=== PATIENT | male | born 1995 | race African-American/Black ===

== ENCOUNTER 2016-08-12 16:08 | Emergency (ER) | payer OTHER, SELFPAY ==
[2016-08-12] MEDS ORDERED: predniSONE 20 MG TAB ONE (16:37)
== END 2016-08-12 16:42 | disposition home or self-care (01) ==
LOC: NAV ERS 16:08
DX: J30.9 Allergic rhinitis, unspecified (principal); J45.909 Unspecified asthma, uncomplicated; F17.210 Nicotine dependence, cigarettes, uncomplicated
CPT/HCPCS: 99282; J7506

== ENCOUNTER 2016-10-10 20:39 | Emergency (ER) | payer SELFPAY | END 2016-10-10 21:10 | disposition home or self-care (01) | LOC: NAV ERS 20:39 | DX: F12.10 Cannabis abuse, uncomplicated (principal); J45.909 Unspecified asthma, uncomplicated; Z87.891 Personal history of nicotine dependence; Z79.899 Other long term (current) drug therapy; V48.4XXA Person boarding or alighting a car injured in noncollision transport accident, initial encounter | CPT/HCPCS: 99284 ==

== ENCOUNTER 2018-11-23 20:24 | Emergency (ER) | payer BC, SELFPAY ==
[2018-11-23] MEDS ORDERED: Sulfameth/Trimethoprim DS 800-160mg TAB ONE (20:46)
== END 2018-11-23 20:48 | disposition home or self-care (01) ==
LOC: NAV ERS 20:24
DX: J34.0 Abscess, furuncle and carbuncle of nose (principal); J45.909 Unspecified asthma, uncomplicated; Z87.891 Personal history of nicotine dependence
CPT/HCPCS: 99283

== ENCOUNTER 2019-04-01 13:53 | Emergency (ER) | payer BC | END 2019-04-01 14:30 | disposition home or self-care (01) | LOC: NAV ERS 13:53 | DX: H00.015 Hordeolum externum left lower eyelid (principal); J45.909 Unspecified asthma, uncomplicated; Z87.891 Personal history of nicotine dependence; Z79.51 Long term (current) use of inhaled steroids | CPT/HCPCS: 99283 ==

== ENCOUNTER 2020-02-29 07:50 | Emergency (ER) | payer BC, OTHER | END 2020-02-29 08:26 | disposition home or self-care (01) | LOC: NAV ERS 07:50 | DX: S46.912A Strain of unspecified muscle, fascia and tendon at shoulder and upper arm level, left arm, initial encounter (principal); J45.909 Unspecified asthma, uncomplicated; Z87.891 Personal history of nicotine dependence; X50.9XXA Other and unspecified overexertion or strenuous movements or postures, initial encounter | CPT/HCPCS: 99283 ==

== ENCOUNTER 2020-08-06 10:02 | Emergency (ER) | payer BC | END 2020-08-06 10:46 | disposition home or self-care (01) | LOC: NAV ERS 10:02 | DX: M79.661 Pain in right lower leg (principal); J45.909 Unspecified asthma, uncomplicated | CPT/HCPCS: 99281 ==

== ENCOUNTER 2021-02-24 07:34 | Emergency (ER) | payer BC, SELFPAY ==
[2021-02-24 08:25] LABS: Bilirubin Negative (Negative); Blood, Urine Trace (Negative); Clarity Clear (Clear); Glucose, Urine (Dipstick) Negative (Negative); Ketone, Urine Negative (Negative); Leukocyte Trace (Negative); Nitrite Negative (Negative); Protein, Urine (Dipstick) Negative (Neg-Trace); Specific Gravity, Urine 1.025 (1.005-1.030); Urobilinogen 0.2 mg/dL (Less than 2)
[2021-02-24 08:26] LABS: Bacteria/HPF Rare-Few HPF (None Seen); RBC/HPF 0-3 HPF (0-3); Squamous Epithelial None Seen HPF (0-3); WBC/HPF 21-50 HPF (0-3)
[2021-02-24] MEDS ORDERED: cefTRIAXone\\ROCEPHIN 500 MG VIAL ONE (08:29)
[2021-02-24] MEDS ORDERED: Azithromycin 250 MG TAB ONE (08:29)
[2021-02-24] MEDS ORDERED: Lidocaine 1% (PF) 30 ML VIAL ONE (08:29)
[2021-02-25 16:48] LABS: Chlam.trachomatis by PCR,Urine Not Detected (NotDetected)
== END 2021-02-24 09:06 | disposition home or self-care (01) ==
LOC: NAV ERS 07:34
DX: N34.2 Other urethritis (principal)
CPT/HCPCS: 81003; 81015; 87491; 87591; 96372; 99283; J0696; J2001

== ENCOUNTER 2021-12-26 18:04 | Emergency (ER) | payer BC, SELFPAY ==
[2021-12-26] MEDS ORDERED: Lidocaine 1% 20 ML MDV ONE (18:16)
[2021-12-26] MEDS ORDERED: Sulfameth/Trimethoprim DS 800-160mg TAB ONE (18:56)
== END 2021-12-26 19:01 | disposition home or self-care (01) ==
LOC: NAV ERS 18:04
DX: L02.412 Cutaneous abscess of left axilla (principal)
CPT/HCPCS: 10060; 87070; 87077; 87186; 87205